=== PATIENT | male | born 1960 | race Caucasian/White ===

== ENCOUNTER → 2022-01-28 09:54 | Outpatient (BNVA) | payer SELFPAY | PROVIDERS: PCP Internal Medicine; Visit Provider Physician Assistant | DX: Z02.79 Encounter for issue of other medical certificate (principal) ==

== ENCOUNTER 2022-12-25 13:52 | Emergency (ER) | payer OTHER, SELFPAY ==
--- NOTE | ~2022-12-25 | XR_ITS ---
EXAMINATION: XR HAND, RIGHT CLINICAL INFORMATION: History of splinter entering hand at fifth metacarpophalangeal joint. Evaluate for foreign body. COMPARISON: None available. TECHNIQUE: PA, lateral, and oblique views of the right hand. FINDINGS: Bones have normal alignment in the wrist and hand. No acute fracture or subluxation. Small osteophytes at mildly degenerated 1st and 2nd metacarpophalangeal joints and at multiple interphalangeal joints. Small linear gas seen in soft tissue ulnar to the region of the fifth metacarpal head without any visible radiopaque foreign body in this area. XR/XR hand RT min 3V IMPRESSION: No evidence of a radiopaque foreign body at the site of minimal soft tissue gas projecting ulnar to the 5th metacarpal head.
[2022-12-25 14:51] VITALS: BP 159/99; PULSE 102; RESP 16; TEMP 36.6; O2SAT 98; BMI 28.3
--- NOTE | 2022-12-25 14:51 | ED.WOUNDLAC ---
HPI - Wound/Laceration General Chief Complaint: Wound/Laceration Stated Complaint: r hand inj fb in knuckle Time Seen by Provider: 12/25/22 16:23 Source: patient and RN notes reviewed Mode of arrival: ambulatory Limitations: no limitations History of Present Illness HPI narrative: This is a 62 year old male, with no significant past medical history, presenting to the emergency department for evaluation of foreign body in right hand since today. Patient states that while he was trying to place a wooden/bamboo garden stake into the ground, the force of the installation?caused the stake to break, ultimately causing a fragment of the garden stake to go directly into his right hand. Patient states that he knows that there is a piece of wood in his hand. His tetanus is not up to date. States pain with palpation and movement with his hand. Denies fevers, chills, nausea, vomiting, or diarrhea. No other complaints or concerns at this time. Onset (ago): hour(s) Extremity Location: right: hand Place: home Patient tetanus UTD: No Context: accidental Associated symptoms: pain and suspect foreign body present Related Data Previous Rx's Medication Instructions Recorded acetaminophen 325 mg tablet 650 mg PO QID PRN pain #45 tabs 12/25/22 (Tylenol) amoxicillin 875 mg-potassium 1 tab PO BID 7 days #14 tabs 12/25/22 clavulanate 125 mg tablet ibuprofen 600 mg tablet 600 mg PO Q6H PRN pain 15 days #45 12/25/22 tabs Allergies Allergy/AdvReac Type Severity Reaction Status Date / Time No Known Allergies Allergy Verified 12/25/22 14:54 Review of Systems Review of Systems: Yes all other systems are reviewed and are negative PMFSH Social History Social History Advance Directives: No Advance Directives Information Provided: No Physical Exam Vital Signs: Vital Signs: Last Vital Signs Temp 98.8 F 12/25/22 18:00 Pulse 72 12/25/22 18:00 Resp 16 12/25/22 18:00 BP 146/101 H 12/25/22 18:00 Pulse Ox 98 12/25/22 18:00 O2 Del Method Room Air 12/25/22 18:00 BMI result Body Mass Index 28.3 Const: Other: General: Awake, alert, and oriented X3. No acute distress. HEENT: Normal inspection CVS: Normal heart rate and rhythm. Pulses normal. Respiratory: No respiratory distress Skin: Warm, dry, no rashes noted to exposed skin. Normal skin color. Normal skin turgor. Extremities: Dorsum of the right hand, overlying the fifth MCP, there is edema and TTP with obvious, palpable, linear foreign body noted measuring approximately 3cm. Just lateral to the fifth MCP, dorsal aspect there is a 3cm linear, partial thickness laceration noted, no active bleeding or drainage. Full ROM all digits of the right hand without difficulty. Able to make fist and oppose each finger to thumb without difficulty. Neuro: Oriented X 3. No motor deficit. No sensory deficit. Course Course Course Narrative: RME: 62 yo male no sign PMHX, c/o of wound to R lateral hand w/ FB after placing a wood stake into the ground [employer]. States his hand slipped, causing the stake to go through his lateral right hand. Tried pulling the wood out of his hand. Unknown last tetanus. Small laceration to right lateral hand with palpable FB, suspect wood overlying 5th MCP. R hand xray, tetanus, lido ordered. Full HPI, ROS and PE to be performed by primary ED provider. Medications Administered Discontinued Medications Generic Name Dose Route Start Last Admin Trade Name Freq PRN Reason Stop Dose Admin Amoxicillin/Clavulanate Potassium 875 mg 12/25/22 18:53 12/25/22 19:01 Amoxicillin/Potassium Clav 875 Mg Tablet PO 12/25/22 18:54 875 mg ONCE ONE Administration Bacitracin 1 appl 12/25/22 18:52 12/25/22 19:01 Bacitracin Oint 0.9 Gm Packet TOPICAL 12/25/22 18:53 1 appl ONCE ONE Administration Protocol Diphtheria/Tetanus/Acell Pertussis 0.5 ml 12/25/22 14:54 12/25/22 16:50 Diphth,Pertus(Acell),Tet Adult 0.5 Ml Syringe IM 12/25/22 14:55 0.5 ml .ONCE ONE Administration Lidocaine HCl 5 ml 12/25/22 14:54 12/25/22 16:50 Lidocaine Hcl 1 % Mpf 5 Ml Vial INFILTRATI 12/25/22 14:55 5 ml ONCE ONE Administration Oxycodone HCl 5 mg 12/25/22 17:48 12/25/22 18:11 Oxycodone Hcl Immed Release 5 Mg Tablet PO 12/25/22 17:49 5 mg ONCE ONE Administration Medical Decision Making Medical Decision Making [facility] Narrative: 62 y/o M presenting to the emergency department with foreign body in right hand since today. X-ray of right hand revealing no bony abnormality but does show minimal soft tissue gas projecting ulnar to the 5th metacarpal head, consistent with foreign body. FB is palpated on examination. Wound cleansed with betadine and saline. Attempted FB removal, see procedure note. We were unable to successfully remove entirety of FB, urged the importance of following up with orthopedics on wednesday to make an appointment to have rest of woodchip removed. Pt medicated with oxycodone prior to procedure and d/c on ibuprofen/tylenol. Pt reports that he has a ride home and will not be driving himself home from the ER today given medicated with oxycodone. Dressed with bacitracin and bandage. Given first dose of Augmentin today. TDAP updated in department today. Discussed case with orthopedic PA, Anaya Urbina, who recommends to start pt on Augmentin and to f/u with ortho next week. Relayed message to patient, who understands and agrees with plan. Differential Diagnosis Differential Diagnoses: The differential diagnosis associated with the presentation includes foreign body, cellulitis, abrasion, contusion, laceration, fracture, septic joint Radiology Impression Discussion of test interpretation with radiology: I have reviewed the radiologist's reading. Radiologist Impression: EXAMINATION: XR HAND, RIGHT CLINICAL INFORMATION: History of splinter entering hand at fifth metacarpophalangeal joint. Evaluate for foreign body.? COMPARISON: None available.? TECHNIQUE: PA, lateral, and oblique views of the right hand. FINDINGS: Bones have normal alignment in the wrist and hand. No acute fracture or subluxation. Small osteophytes at mildly degenerated 1st and 2nd metacarpophalangeal joints and at multiple interphalangeal joints. Small linear gas seen in soft tissue ulnar to the region of the fifth metacarpal head without any visible radiopaque foreign body in this area. XR/XR hand RT min 3V IMPRESSION: No evidence of a radiopaque foreign body at the site of minimal soft tissue gas projecting ulnar to the 5th metacarpal head. Dictated By: Billy Fagan MD Prescription Management I considered prescription management with: Antibiotic Procedures Foreign Body Removal Time Out Performed: yes Site: right and hand Description of foreign body: other (wood) Sedation/Analgesia: none Technique: manual removal and removal with forceps Confirmed by:: patient report and palpation Complications: none Post-procedure exam: awake, alert, normal BP, normal HR and normal O2 sat Neurovascular: normal distal pulse, normal capillary fill, distal light touch sensation intact, distal motor function normal, no signs of compartment syndrome and no change from pre-procedure Discharge Plan Discharge Clinical Impression: Foreign body hand Patient Disposition: Home, Self-Care Instructions: Puncture Wound (ED) Additional Instructions: Please take prescribed medication as directed. We gave your 1st dose of antibiotic today in the department. Please start taking antibiotic twice a day. Please watch for any signs of infection including but not limited to fevers, chills, increased redness, pain or swelling. Please follow-up with Orthopedics, call on Wednesday to make an appointment. If any new or worsening symptoms occur, including but not limited to fevers, chills, decreased range of motion of your right hand, please return for re-evaluation. Prescriptions: New amoxicillin-pot clavulanate 875-125 mg tablet 1 tab PO BID 7 Days Qty: 14 0RF ibuprofen 600 mg tablet 600 mg PO Q6H PRN (Reason: pain) 15 Days Qty: 45 0RF acetaminophen [Tylenol] 325 mg tablet 650 mg PO QID PRN (Reason: pain) Qty: 45 0RF Referrals: [facility] [place] [facility] [Provider Group] Stand Alone Forms: Work/School Release Interventions: ED Discharge Assessment Last Done: 12/25/22 19:12 Discharge Date/Time: 12/25/22 19:13
[2022-12-25 16:24] VITALS: BP 139/102; PULSE 92; RESP 16; TEMP 36.2
[2022-12-25] MEDS: Lidocaine HCl 1 % MPF 5 ML VIAL INFILTRATI (16:50)
[2022-12-25] MEDS: Diphth,Pertus(ACell),Tet Adult 0.5 ML SYRINGE IM (16:50)
[2022-12-25 18:00] VITALS: BP 146/101; PULSE 72; RESP 16; TEMP 37.1; O2SAT 98
[2022-12-25] MEDS: oxyCODONE HCl Immed Release 5 MG TABLET PO (18:11)
[2022-12-25] MEDS: Amoxicillin/Potassium Clav 875 MG TABLET PO (19:01)
[2022-12-25] MEDS: Bacitracin Oint 0.9 GM PACKET 1 APPL TOPICAL (19:01)
== END 2022-12-25 19:13 | disposition home or self-care (01) ==
PROVIDERS: Emergency Provider Emergency Medicine
DX: S60.511A Abrasion of right hand, initial encounter (principal); M60.241 Foreign body granuloma of soft tissue, not elsewhere classified, right hand; Y28.9XXA Contact with unspecified sharp object, undetermined intent, initial encounter; Y93.9 Activity, unspecified; Y92.9 Unspecified place or not applicable; Y99.9 Unspecified external cause status; Z79.899 Other long term (current) drug therapy; Z23 Encounter for immunization
CPT/HCPCS: 20520; 73130; 90471; 90715; 99284

== ENCOUNTER 2022-12-29 08:57 | Outpatient (AMB) | payer OTHER, SELFPAY ==
--- NOTE | 2022-12-29 09:00 | A.OFFVIS_ITS ---
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 Patient states that he knows that there is a piece of wood in his hand. Seen in ED where ABX were prescribed. Pain is currently 4/10. 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 On 12/25/22 he [address] trying to place a bamboo stake in his backyard, the stake splintered and he slipped, driving a piece of bamboo into his hand. He was seen in the ED where they were able to partially remove the FB. He was placed on PO Augmentin and referred here. He says he has some localized pain today. 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 Review of Systems Const All systems reviewed & are unremarkable except as noted in HPI and below Physical Exam Vital Signs: BMI result Body Mass Index 28.3 Const General: cooperative, healthy appearing and no acute distress Orientation/consciousness: patient oriented x3 HEENT Head: Yes normocephalic and Yes atraumatic Eyes EOM: EOMs intact bilaterally Resp Effort & Inspection: normal respiratory effort and able to speak in complete sentences Cardio Jugular venous distension: no JVD Skin General skin exam: turgor normal Rashes: no rashes Neuro General: patient oriented x3 Extrem Other: Evaluation of Right Upper Extremity: The patient is alert, oriented, and in no acute distress Neuro: Median, Ulnar, Radial nerves motor and sensory intact and sensation is normal to the tips of all digits No thenar or intrinsic wasting Good APB muscle belly firing and good finger cross Vascular: Cap refill brisk ROM: He can make a fist and extend all his digits Skin: There is a 1 cm laceration on the ulnar aspect of the hand ulnar to the 5th metacarpal head, with a focal area of swelling and erythema that is transverse extending from the ulnar aspect of 5th MCP joint dorsally over 5th metacarpal head. It is in this area that he believes there is a transversely oriented foreign body. He is sure there is still a piece of bamboo pole in his hand Local reaction and focal cellulitis around the injury No generalized swelling or lymphangitis Psych Appearance: grossly normal Affect: normal affect Attitude: cooperative Assessment & Plan Assessment & Plan (1) Puncture wound of right hand with foreign body: Code(s): S61.441A - Puncture wound with foreign body of right hand, initial encounter (2) Laceration of right hand: Code(s): S61.411A - Laceration without foreign body of right hand, initial encounter Plan Assessment & Plan: 1. Right hand foreign body and localized cellulitis From a piece of bamboo, oriented transversely dorsal to the 5th metacarpal head DOI: 12/25/22 He is currently on Augmentin I educated him about this condition I discussed treatment options, and I am recommending surgery The patient would like to proceed with removal The risks and benefits of operative treatment were discussed with the patient and the patient wishes to proceed with surgery. These risks include, but are not limited to risk of damage to blood vessels, nerves, tendons, infection, recurrence, incomplete relief of preoperative symptoms, persistent pain, possible need for further surgery and the risks associated with regional blocks and anesthesia. The plan is to take the patient to the operating room sometime on 12/31/22 for the following procedures: 1. Right hand & small finger I&D, under local 2. Right hand removal of foreign body, under local All of the preoperative paperwork including the consent was filled out today. All the patient's questions were answered. The patient understands that they will be contacted by our plastic surgery coordinator soon to schedule this procedure He denies Diabetes, blood thinners, asthma, heart, lung, kidney issues He will continue with his PO Abx at this time He knows to contact us if he has any worsening of his symptoms. 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 Coding Level of Care Code New Pt Level 4 (93962) Diagnoses Puncture wound of right hand with foreign body S61.441A Laceration of right hand S61.411A
[2022-12-29 09:01] VITALS: BMI 28.3
== END 2022-12-29 09:47 | disposition home or self-care (01) ==
PROVIDERS: Visit Provider Orthopaedic Surgery
DX: S61.441A Puncture wound with foreign body of right hand, initial encounter (principal); S61.411A Laceration without foreign body of right hand, initial encounter; L03.113 Cellulitis of right upper limb
CPT/HCPCS: 99204

== ENCOUNTER → 2022-12-29 08:57 | Outpatient (BNVA) | payer OTHER, SELFPAY | PROVIDERS: Visit Provider Orthopaedic Surgery ==

== ENCOUNTER 2022-12-31 06:35 | Day surgery (SDC) | payer OTHER, SELFPAY ==
--- NOTE | 2022-12-30 10:26 | HO.ANESPROP2 ---
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
[2022-12-31 06:59] VITALS: BP 144/96; PULSE 76; RESP 18; TEMP 36.5; O2SAT 95; BMI 23.0
[2022-12-31] MEDS: Lactated Ringers 1,000 ML 100 ML IVCONT (07:14)
--- NOTE | 2022-12-31 08:04 | P.CONAN_ITS ---
[facility] Active Problems Active Problems: All Active Problems (Updated 12/29/22 @ 09:47 by Fredy Nieto) Laceration of right hand (Acute) Puncture wound of right hand with foreign body (Acute) Past Medical History Functional capacity: independent ambulation Family History Family history of problems with anesthesia: No Surgical History History of Problems with Anesthesia: No Social History Social History Patient Tobacco Use Status: Current everyday Tobacco user Tobacco use type: Cigarette Cigarettes Per Day: 15 Use of substances other than those prescribed or required for medical reasons: No Are you DNR?: No Advance Directives: No Advance Directives Information Provided: Yes Current occupational status: employed 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 Meds Allergies Allergy/AdvReac Type Severity Reaction Status Date / Time No Known Allergies Allergy Verified 12/29/22 09:08 Active Medications: Current Medications Lactated Ringer's (Lr) 1,000 mls @ 100 mls/hr IVCONT .Q10H ELENI Last Admin: 12/31/22 07:14 Dose: 100 mls/hr Exam Exam Date and Time: December 31, 2022 0804 Height,Weight and Vital Signs: Height 5 ft 10 in Weight 72.575 kg Last Vital Signs Temp 97.7 F 12/31/22 06:59 Pulse 76 12/31/22 06:59 Resp 18 12/31/22 06:59 BP 144/96 H 12/31/22 06:59 Pulse Ox 95 12/31/22 06:59 O2 Del Method Room Air 12/31/22 06:59 Airway Mallampati Class: II TM Dist: >3cm Denture: Upper and Lower Heart: RRR Lungs: CTA Assessment and Plan Final Anesthetic Review Family History of Problems with Anesthesia: No History of Problems with Anesthesia: No NPO: Yes ASA Class: II Final Preanesthetic Review: Meds/Allgs Chart Reviewed, Consent Obtained/Reviewed and Anes Risks/Benef Reviewed Patient Risk: Low Procedure Risk: Low Anesthetic Plan Anesthetic Plan: GA Disposition: Standard PACU
--- NOTE | 2022-12-31 09:13 | MHC.SHP ---
Pre-Procedural Eval Section A Date of Service: 12/31/22 The patient is an INPATIENT: No Changes since office visit: No Cold of Flu in the past 2 weeks, No New Medical Problems, No Changes in Medication and No Patient answered all questions The History & Physical has been completed within 30 days and I have reviewed it.: Yes Section B Chief Complaint: Puncture wound with foreign body of right hand, in Allergies: Allergies Allergy/AdvReac Type Severity Reaction Status Date / Time No Known Allergies Allergy Verified 12/29/22 09:08 Plan I have reviewed the history and physical and performed a pertinent physical examination on my patient. No changes have occurred unless specified. Time Spent With Patient Time: Total time managing care of this patient today ____ minutes.
--- NOTE | 2022-12-31 09:14 | W.PM.OPN ---
Operative Note Operative Note Date of Service: 12/31/22 Narrative: Operative Note Narrative: Preop diagnosis: 1. Right hand foreign body with local infection Postop diagnosis: Same Procedure: 1. Right hand foreign body removal 2. Right hand infection I&D Surgeon: Susana Flanagan MD Anesthesia: General Anesthesia Findings: wooden foreign bodies x3, +purulence Implants: none Tourniquet time: 11 minutes EBL: 5.0 ml Specimen: cultures taken Drains: None Complications: None Disposition: Brought to the recovery room in stable condition Plan: Follow-up early next week for wound check, suture removal and to check culture Indications: The patient is a 62 year old man with a piece of wood from a Garden steak in the dorsal aspect of his right hand, with surrounding swelling and erythema . The risks and benefits of operative treatment, including but not limited to risk of damage to blood vessels, nerves, tendons, infection, recurrence, persistent pain or numbness, incomplete resolution of preoperative symptoms, or need for further surgery were discussed with the patient and they wished to proceed with surgery. Procedure: Once consent was obtained patient was brought back to the operating suite and placed in the operating table in a supine position. . Perioperative antibiotics and anesthesia was administered by the anesthesia team. A tourniquet was applied to the proximal aspect of the right upper extremity and the limb was prepped and draped in a standard surgical fashion. The limb was elevated exsanguinated with Esmarch bandage and the tourniquet inflated to 250 mm of mercury for a total tourniquet time of 11 minutes. initially I made a 1.5 cm transverse incision in line with the focal swelling and presumed foreign body. The incision was made through the skin the subcutaneous tissues. I then dissected down into the subcutaneous tissues using some iris scissors. There we found some purulence and took cultures of the yellow cloudy purulence. I found a piece of wood that measured about 1 cm in length by perhaps 2 mm in diameter. However upon further exploration, it was evident that there were more foreign bodies in the area. Therefore I extended the incision transversely to connect with original wound on the ulnar aspect of the hand. This allowed me to then and explore the entire wound bed. I found at least 3 more pieces of wood as well as some fibrinous exudate and reactive tissue. This was removed and placed on the back table. I then copiously irrigated the wound with normal saline. I do not believe that the foreign body entered the MCP joint. Also on exam prior to going back for surgery he had no difficulty with active range of motion of the MCP joint and no pain with axial loading. At this point the tourniquet was deflated and hemostasis obtained with a brief period of local pressure. The wound was copiously irrigated with normal saline. The skin edges were loosely reapproximated with 5-0 nylon suture. The wound was infiltrated with some 0.5% plain ropivacaine for postop pain control and a sterile dressing was applied.The patient appears to have tolerated the procedure well and with no complications. All digits were well vascularized conclusion of the case.
[2022-12-31 10:03] VITALS: BP 173/98; PULSE 73; RESP 16; TEMP 36.4; O2SAT 95
[2022-12-31 10:08] VITALS: BP 183/121; PULSE 93; RESP 20; O2SAT 96
[2022-12-31 10:13] VITALS: BP 163/110; PULSE 74; RESP 18; O2SAT 97
[2022-12-31 10:18] VITALS: BP 157/106; PULSE 92; RESP 18; O2SAT 96
[2022-12-31 10:33] VITALS: BP 157/104; PULSE 75; RESP 20; TEMP 36.6; O2SAT 96
--- NOTE | 2022-12-31 10:54 | HO.POSTANES ---
Post Anesthesia Evaluation Post Anesthesia Evaluation Date of Service: 12/31/22 Vital Signs: Vital Signs Temp Pulse Resp BP Pulse Ox O2 Del Method 12/31/22 10:33 97.9 F 75 20 157/104 H 96 Room Air 12/31/22 10:18 92 18 157/106 H 96 Room Air 12/31/22 10:13 74 18 163/110 H 97 Room Air 12/31/22 10:08 93 20 183/121 H 96 Room Air 12/31/22 10:03 97.6 F 73 16 173/98 H 95 Room Air 12/31/22 06:59 97.7 F 76 18 144/96 H 95 Room Air Anesthesia: General LMA Mental Status: Awake Pain Control: Satisfactory Nausea/Vomiting: None Hydration: Adequate Anesthesia-Related Issues: No Anes. Related Issues
== END 2022-12-31 11:08 | disposition home or self-care (01) ==
PROVIDERS: Visit Provider Orthopaedic Surgery
PROC: (CPT 10120; principal; 2022-12-31 08:40)
PROC: (CPT 10120; 2022-12-31 08:40)
DX: S61.441A Puncture wound with foreign body of right hand, initial encounter (principal); L08.9 Local infection of the skin and subcutaneous tissue, unspecified; W45.8XXA Other foreign body or object entering through skin, initial encounter; Y93.9 Activity, unspecified; Y92.007 Garden or yard of unspecified non-institutional (private) residence as the place of occurrence of the external cause; Y99.9 Unspecified external cause status
CPT/HCPCS: 10120; 87070; 87077; 87186; 87205; 88300; J0171; J0690; J1100; J1885; J2250; J2405; J2795; J3010

== ENCOUNTER → 2022-12-31 06:35 | Outpatient (BNV) | payer OTHER, SELFPAY | PROVIDERS: Visit Provider Orthopaedic Surgery | DX: S60.551A Superficial foreign body of right hand, initial encounter (principal) | CPT/HCPCS: 26070 ==

== ENCOUNTER 2023-01-06 10:41 | Outpatient (AMB) | payer OTHER, SELFPAY ==
--- NOTE | 2023-01-06 10:52 | MHC.OFFVIS ---
Intake Intake Visit Reasons: PO RT hand I&D 12/31/22AR Intake Note: Chinmay 62 yr old male presents today for his P/O visit of his Right hand I7D from DOS 12/31/22. States he is not able to fully make a fist due to discomfort of stitches. States he is afraid he might pop a stitch. Allergies No Known Allergies Allergy (Verified 01/06/23 10:56) HPI PO RT hand I&D 12/31/22AR HPI Details Chinmay is a 62 year old right hand dominant man who presents S/P right hand foreign body removal and I&D, DOS: 12/31/22. He says he is doing well and has no drainage or other symptoms of infection. He continues to take his oral Abx as instructed, and says that he has about 3 days left.. He says last night his dressing got wet in the shower. He removed his dressing, cleaned the surgical site, and re-dressed his incision He says he has some pain and difficulty making a fist but he thinks this is due to his sutures. 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 He can make a fist and extend all his digits, including his small finger Sensation is intact Cap refill is brisk Microbiology report: Routine Culture Final 01/03/23-800 Organism 1 Enterobacter cloacae complex Quantity 1+ Organism 2 Stenotrophomonas maltophilia Quantity 1+ Ent harmony cp Sten malt M.I.C. RX M.I.C. RX --------- --- --------- --- Cefazolin >=64 R Ertapenem <=0.12 S Gentamicin <=1 S Levofloxacin <=0.12 S 0.5 S Trimethoprim/Sulfamethoxazole <=20 S <=20 S Psych Appearance: grossly normal Affect: normal affect Attitude: cooperative Assessment & Plan Assessment & Plan (1) Puncture wound of right hand with foreign body: Code(s): S61.441A - Puncture wound with foreign body of right hand, initial encounter (2) Laceration of right hand: Code(s): S61.411A - Laceration without foreign body of right hand, initial encounter Plan Assessment & Plan: 1. Right hand foreign body and localized cellulitis, S/P removal of foreign body & I&D From a piece of bamboo, oriented transversely dorsal to the 5th metacarpal head DOI: 12/25/22 DOS: 12/31/22 He is currently on Augmentin, with good improvement in his symptoms The patient appears to be doing well post-operatively I educated him about the post-operative course He knows to contact us if he has any new or worsening symptoms of infection He will continue on his PO Augmentin until completed I discussed activity modifications, he is to lift nothing heavier than a cellphone for the next two weeks He will perform gentle ROM exercises at home He should avoid any underwater activities for the next 5 days He should gently massage about the incision site to reduce the risk of hypersensitivity 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 I anticipate he can return to work after his next appointment Scribed for Susana Flanagan MD by Fredy Nieto, medical assistant instructor, on 01/06/23 at 11:30 AM, EST. Coding Level of Care Code Global (41084) Diagnoses Puncture wound of right hand with foreign body S61.441A Laceration of right hand S61.411A
== END 2023-01-06 11:40 | disposition home or self-care (01) ==
PROVIDERS: Visit Provider Orthopaedic Surgery
DX: S61.441A Puncture wound with foreign body of right hand, initial encounter (principal); S61.411A Laceration without foreign body of right hand, initial encounter
CPT/HCPCS: 99024

== ENCOUNTER → 2023-01-06 10:41 | Outpatient (BNVA) | payer OTHER, SELFPAY | PROVIDERS: Visit Provider Orthopaedic Surgery ==

== ENCOUNTER 2023-01-13 09:17 | Outpatient (AMB) | payer OTHER, SELFPAY ==
--- NOTE | 2023-01-13 09:20 | A.OFFVIS_ITS ---
Intake Intake Visit Reasons: PO-RT hand I&D 12/31/22AR Intake Note: Chinmay a 62 year old male presents today for his post operative wound check of his right hand I&D from 12/31/22.?Patient reports he is doing well, his pain has improved. He has no concerns today. Allergies No Known Allergies Allergy (Verified 01/13/23 09:24) HPI PO-RT hand I&D 12/31/22AR HPI Details 62-year-old male who returns to the office today for post-op wound check right hand I&D, 12/31/[address] Flanagan. He states his pain has improved since the last visit and is doing well overall. He has no concerns today. 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 Sutures are intact. No evidence of infection such as increased redness or drainage. He is able to make a full fist and fully extend digits. NVI. Assessment & Plan Assessment & Plan (1) Puncture wound of right hand with foreign body: Code(s): S61.441A - Puncture wound with foreign body of right hand, initial encounter (2) Laceration of right hand: Code(s): S61.411A - Laceration without foreign body of right hand, initial encounter Plan Sutures were removed today. I did encourage him to continue with his ROM exerc ises and soft tissue massage. He will return to work without restrictions and see back if symptoms arise, otherwise as needed. Patient Instructions: Scribed for Fermin Hartman PA-C, by Gabriel Ron medical planner, on 01/13/2023 at 9:15 AM EST. I, Fermin Hartman PA-C, have personally reviewed and agree with the information entered by the scribe. Coding Level of Care Code Global (94672) Diagnoses Puncture wound of right hand with foreign body S61.441A Laceration of right hand S61.411A
== END 2023-01-13 09:45 | disposition home or self-care (01) ==
PROVIDERS: Visit Provider Physician Assistant
DX: S61.441A Puncture wound with foreign body of right hand, initial encounter (principal); S61.411A Laceration without foreign body of right hand, initial encounter
CPT/HCPCS: 99024

== ENCOUNTER → 2023-01-13 09:17 | Outpatient (BNVA) | payer OTHER, SELFPAY | PROVIDERS: Visit Provider Physician Assistant ==